=== PATIENT | female | born 1980 | race Caucasian/White ===

== ENCOUNTER 2017-02-16 22:22 | Emergency (ER) | payer OTHER ==
[2017-02-17 00:42] LABS: BILIRUBIN NEGATIVE (NEGATIVE); BLOOD NEGATIVE Ery/uL (NEGATIVE); CLARITY CLEAR (CLEAR); COLOR YELLOW (YELLOW); GLUCOSE (U) NORMAL (NORMAL); KETONE (U) NEGATIVE (NEGATIVE); LEUKOCYTES NEGATIVE Leu/uL (NEGATIVE); NITRITE POSITIVE (NEGATIVE); PROTEIN NEGATIVE (NEGATIVE); UROBILINOGEN 0.2 mg/dL (0.2-1.0)
[2017-02-17 00:43] LABS: BASOPHIL 0.4 % (0-2); HGB 15.9 g/dl (12.5-16.0); LYMPHOCYTE 25.8 % (15-48); MCH 31.5 pg (25.0-31.0); MCHC 33.8 g/dL (32.0-36.0); MCV 93.3 fL (78.0-100.0); MONOCYTE 6.5 % (0-12); MPV 9.4 fL (6.0-9.5); NEUTROPHIL 65.3 % (41-80); PLT 305 K/uL (150-400); RBC 5.04 M/uL (4.20-5.40); RDW 13.5 % (11.5-14.0)
[2017-02-17 00:48] LABS: BACTERIA 2+
[2017-02-17 00:50] LABS: WBC 14.2 K/uL (4.0-10.5)
[2017-02-17 01:00] LABS: ALBUMIN 4.4 g/dL (3.5-5.0); BILIRUBIN - TOTAL 0.2 mg/dL (0.1-1.0); CREATININE 0.6 mg/dL (0.5-1.0); GLOBULIN (CALCULATION) 2.4 g/dL (2.2-4.2); POTASSIUM 3.8 mmol/L (3.5-5.1); TOTAL PROTEIN 6.8 g/dL (6.4-8.3)
[2017-03-31] MEDS ORDERED: NORCO 5-325 TA1 EAC1 PO (10:58)
[2017-03-31] MEDS ORDERED: METRONIDAZOLE500 MG PO (10:58)
[2017-03-31] MEDS ORDERED: LEVAQUIN500 MG PO (10:58)
[2017-03-31] MEDS ORDERED: EFFEXOR XR37.5 MG PO (10:59)
[2017-03-31] MEDS ORDERED: BUSPIRONE HCL15 MG PO (10:59)
[2017-03-31] MEDS ORDERED: TRAMADOL HCL50 MG PO (11:00)
== END 2017-02-17 04:15 | disposition home or self-care (01) ==
LOC: FER 22:22
PROVIDERS: Emergency Medicine Emergency Medical Services
DX: N30.00 Acute cystitis without hematuria (principal); R19.7 Diarrhea, unspecified; E86.9 Volume depletion, unspecified; F17.210 Nicotine dependence, cigarettes, uncomplicated; Z87.19 Personal history of other diseases of the digestive system; Z90.49 Acquired absence of other specified parts of digestive tract
CPT/HCPCS: 36415; 80053; 81001; 82150; 83605; 83690; 85025; 87040; 87076; 87088; 87186; J1170; J1885; J2405; Q9967